=== PATIENT | male | born 1950 | race Caucasian/White ===

== ENCOUNTER → 2017-05-27 | Outpatient (REF) | payer OTHER, MEDICARE ==
[2017-05-27 12:44] LABS: ALBUMIN/GLOBULIN RATIO 0.97 (1.00-1.93); ALKALINE PHOSPHATASE 89 U/L (45-117); ALT/SGPT 21 U/L (12-78); ANION GAP 9 MEQ/L (8-16); AST/SGOT 16 U/L (15-37); BILIRUBIN,TOTAL 0.3 MG/DL (0.2-1.0); BLOOD UREA NITROGEN 14 MG/DL (7-18); CALCIUM LEVEL 8.4 MG/DL (8.8-10.2); CARBON DIOXIDE LEVEL 24 MEQ/L (21-32); CHLORIDE LEVEL 113 MEQ/L (98-107); CHOLESTEROL LEVEL 123 MG/DL (<200); CREATININE FOR GFR 0.89 MG/DL (0.70-1.30); GLOMERULAR FILTRATION RATE > 60.0 (>49); GLUCOSE, FASTING 89 MG/DL (80-110); SODIUM LEVEL 146 MEQ/L (136-145); TOTAL PROTEIN 6.1 GM/DL (6.4-8.2); TRIGLYCERIDES LEVEL 93 MG/DL (<150)
== END ==
LOC: M SFHCPLAZ 09:02
PROVIDERS: ATTEND Physician Assistant
DX: E78.4 Other hyperlipidemia (principal); Z12.5 Encounter for screening for malignant neoplasm of prostate
CPT/HCPCS: 36415; 80053; 80061; G0103

== ENCOUNTER → 2017-06-18 | Outpatient (REF) | payer MEDICARE ==
[2017-06-18 18:42] LABS: CALCIUM OXALATE CRYSTALS SMALL
== END ==
LOC: M SMT 16:40
PROVIDERS: ATTEND Nurse Practitioner Women's Health
DX: R97.20 Elevated prostate specific antigen [PSA] (principal); Z79.899 Other long term (current) drug therapy
CPT/HCPCS: 81001; 87086; G0463

== ENCOUNTER → 2017-08-29 | Outpatient (CLI) | payer MEDICARE ==
--- NOTE | 2017-08-29 09:14 | REP ---
Complete abdominal ultrasound and abdominal aortic ultrasound: Complete abdominal ultrasound: There is no cholelithiasis, gallbladder wall thickening or pericholecystic fluid. There is no intrahepatic or extrahepatic biliary duct dilatation. The common duct measures 4.2 mm in diameter. The hepatic parenchyma is homogeneous. The pancreas is obscured by bowel. The spleen is normal size measuring 7.8 cm craniocaudad length. The kidneys are normal size. Right kidney measures 11.7 x 5 one 3 x 4.5 cm. Left kidney measures 10.6 x 41 6 x 4.6 cm. There are no calculi. There is no hydronephrosis. There are no solid or cystic renal masses. There is no free fluid in the abdomen. Impression: Essentially negative complete abdominal ultrasound. Abdominal aortic ultrasound: Abdominal aorta ultrasound: Abdominal Aortic Measurements are as follows: Proximal 2.5 cm AP 2.4 cm TRV Renal Artery Level 2.2 cm AP 2.1 cm TRV Mid Aorta 2.2 cm AP 2.3 cm TRV Distal Aorta 3.3 cm AP 3.5 cm TRV R Iliac Artery 1.0 cm AP 1.1 cm TRV L Iliac Artery 1.0 cm AP 1.3 cm TRV There is mild aneurysmal dilatation of the distal abdominal aorta. Signed by Luis M Iverson MD 08/29/2017 09:05 A
[2017-08-29 09:37] LABS: ALBUMIN 3.7 GM/DL (3.2-5.2); ALBUMIN/GLOBULIN RATIO 1.06 (1.00-1.93); BILIRUBIN,DIRECT 0.2 MG/DL (0.0-0.2); BILIRUBIN,TOTAL 0.7 MG/DL (0.2-1.0); TOTAL PROTEIN 7.2 GM/DL (6.4-8.2)
== END ==
LOC: M RAD 07:49
PROVIDERS: ATTEND Family Medicine
DX: E88.09 Other disorders of plasma-protein metabolism, not elsewhere classified (principal); Z13.6 Encounter for screening for cardiovascular disorders

== ENCOUNTER → 2017-09-11 | Outpatient (CLI) | payer MEDICARE | LOC: M SMT 11:07 | PROVIDERS: ATTEND Nurse Practitioner Women's Health | DX: R97.20 Elevated prostate specific antigen [PSA] (principal) ==

== ENCOUNTER 2017-10-14 06:48 | Day surgery (SDC) | payer MEDICARE ==
[2017-10-14] MEDS ORDERED: NS 1,000 ML IV (07:00)
[2017-10-14] MEDS ORDERED: PROPOFOL 200 MG/20 ML VIAL As Ordered ×2 (07:53)
[2017-10-14] MEDS ORDERED: LIDOCAINE 2% MDV 20 ML VIAL As Ordered (07:54)
== END 2017-10-14 08:30 | disposition home or self-care (01) ==
LOC: M OPP 06:48
DX: R19.5 Other fecal abnormalities (principal); D12.5 Benign neoplasm of sigmoid colon; D12.3 Benign neoplasm of transverse colon; D12.0 Benign neoplasm of cecum; K57.30 Diverticulosis of large intestine without perforation or abscess without bleeding; K64.8 Other hemorrhoids; E78.5 Hyperlipidemia, unspecified; M54.9 Dorsalgia, unspecified; R25.1 Tremor, unspecified; Z87.891 Personal history of nicotine dependence; Z79.899 Other long term (current) drug therapy
CPT/HCPCS: 45385

== ENCOUNTER → 2019-04-06 | Outpatient (REF) | payer MEDICARE ==
[~2019-04-06] MED LIST: ATOR40TA75 PO; MYSO50TA5 PO
[2019-04-06 12:24] LABS: INR 1.04; PROTHROMBIN TIME 13.3 SECONDS (11.8-14.0)
[2019-04-06 12:30] LABS: ALBUMIN 3.6 GM/DL (3.2-5.2); BILIRUBIN,TOTAL 0.5 MG/DL (0.2-1.0); CALCIUM LEVEL 8.6 MG/DL (8.8-10.2); CREATININE FOR GFR 1.3 MG/DL (0.70-1.30); GLOMERULAR FILTRATION RATE 58.6 (>49); POTASSIUM SERUM 4.4 MEQ/L (3.5-5.1); TOTAL PROTEIN 7.1 GM/DL (6.4-8.2)
== END ==
LOC: M SFHCPLAZ 10:01
PROVIDERS: ATTEND Family Medicine
DX: E88.09 Other disorders of plasma-protein metabolism, not elsewhere classified (principal)
CPT/HCPCS: 80053; 85610; G0463

== ENCOUNTER → 2020-02-02 | Outpatient (CLI) | payer MEDICARE ==
--- NOTE | 2020-02-02 15:50 | REP ---
CT CHEST WITHOUT IV CONTRAST: CT chest performed without IV contrast. Sagittal and coronal reconstruction images are performed. Comparison is made with several prior exams, most recently 07/31/2015. There is a 3 mm nodule in the right upper lobe on image 46 and another is seen in the right lower lobe posterolaterally on image 77. These are unchanged since the prior studies. Calcified granuloma is seen in the left lower lobe. No new nodule is seen in either lung. There is some mild scattered linear fibrotic scarring. There is partially calcified left hilar lymph node. No suspicious axillary or mediastinal adenopathy is seen. There is mild atherosclerotic calcification of the thoracic aorta without aneurysm. The heart is normal in size. There is no pleural or pericardial effusion. There are a few subcentimeter hypodensities in the liver likely representing small cysts. There are degenerative changes of the spine. IMPRESSION: There are two 3 mm nodules in the right lung which appear stable. Calcified granuloma in the left lower lobe. Linear fibrotic scarring noted. No new nodule in either lung. No definite adenopathy in the chest. Electronically Signed by Luis M Lr MD 02/02/2020 04:34 P
== END ==
LOC: M RAD 14:44
PROVIDERS: ATTEND Family Medicine
DX: R91.8 Other nonspecific abnormal finding of lung field (principal); Z87.898 Personal history of other specified conditions

== ENCOUNTER → 2020-09-25 | Outpatient (REF) | payer MEDICARE ==
[2020-09-25 10:53] LABS: ALBUMIN 3.6 GM/DL (3.2-5.2); BILIRUBIN,TOTAL 0.5 MG/DL (0.2-1.0); CALCIUM LEVEL 8.7 MG/DL (8.8-10.2); CHOLESTEROL RISK RATIO 4.018 (<5); CREATININE FOR GFR 1.28 MG/DL (0.70-1.30); GLOMERULAR FILTRATION RATE 59.5 (>49); POTASSIUM SERUM 4.3 MEQ/L (3.5-5.1); TOTAL PROTEIN 6.9 GM/DL (6.4-8.2)
== END ==
LOC: M PLALAB 08:01
PROVIDERS: ATTEND Family Medicine
DX: E78.2 Mixed hyperlipidemia (principal); Z13.1 Encounter for screening for diabetes mellitus

== ENCOUNTER → 2020-11-14 | Outpatient (REF) | payer MEDICARE ==
[2020-11-14 11:41] LABS: BLOOD UREA NITROGEN 19 MG/DL (7-18); CALCIUM LEVEL 8.9 MG/DL (8.8-10.2); CARBON DIOXIDE LEVEL 26 MEQ/L (21-32); CHLORIDE LEVEL 108 MEQ/L (98-107); CREATININE FOR GFR 1.22 MG/DL (0.70-1.30); GLOMERULAR FILTRATION RATE > 60.0 (>49); GLUCOSE, FASTING 128 MG/DL (70-100); POTASSIUM SERUM 4.6 MEQ/L (3.5-5.1); SODIUM LEVEL 141 MEQ/L (136-145)
== END ==
LOC: M SFHCPLAZ 08:55
PROVIDERS: ATTEND Family Medicine
DX: R94.4 Abnormal results of kidney function studies (principal)

== ENCOUNTER → 2020-12-20 | Outpatient (CLI) | payer MEDICARE ==
[~2020-12-20] MED LIST changes: +[UNRECOGNIZED DRUG - OTHER]
== END ==
LOC: M LABSMTC 13:58
PROVIDERS: ATTEND Anesthesiology
DX: Z20.822 Contact with and (suspected) exposure to COVID-19 (principal)

== ENCOUNTER 2020-12-25 09:12 | Day surgery (SDC) | payer MEDICARE ==
[~2020-12-25] VITALS: Ht 185.4 cm; Wt 81.2 kg
[~2020-12-25 09:12] MED LIST changes: +LIDOCAINE 2% 100MG/5ML SDV (FOR ANES.) As Ordered ONE; +NS 1,000 ML IV ONE; +propofoL 200 MG/20 ML VIAL As Ordered ONE
--- NOTE | 2020-12-25 11:35 | ROOR ---
Patient Name: Jared Puckett Procedure Date: 12/25/2020 11:02 AM Date of : 1950 Age: 70 Room: [facility] Gender: Male Note Status: Finalized Procedure: Colonoscopy Indications: High risk colon cancer surveillance: Personal history of colonic polyps, Last colonoscopy: September 2017 Providers: Jared LONG MD Referring MD: Ligia Joya MD Requesting Provider: Medicines: Monitored Anesthesia Care Complications: No immediate complications. Procedure: Pre-Anesthesia Assessment: - The heart rate, respiratory rate, oxygen saturations, blood pressure, adequacy of pulmonary ventilation, and response to care were monitored throughout the procedure. The Colonoscope was introduced through the anus and advanced to the terminal ileum, with identification of the appendiceal orifice and IC valve. The colonoscopy was performed without difficulty. The patient tolerated the procedure well. The quality of the bowel preparation was good. Findings: Hemorrhoids were found on perianal exam. Multiple small and large-mouthed diverticula were found in the sigmoid colon. There was evidence of diverticular spasm. A 5 mm polyp was found in the splenic flexure. The polyp was sessile. The polyp was removed with a cold snare. Resection and retrieval were complete. External and internal hemorrhoids were found during retroflexion. The hemorrhoids were medium-sized and large. Impression: - Hemorrhoids found on perianal exam. - External and internal hemorrhoids. - Moderate diverticulosis in the sigmoid colon. There was evidence of diverticular spasm. - One 5 mm polyp at the splenic flexure, removed with a cold snare. Resected and retrieved. Recommendation: - Repeat colonoscopy in 5 years for surveillance. Procedure Code(s): --- Professional --- 39456, Colonoscopy, flexible; with removal of tumor(s), polyp(s), or other lesion(s) by snare technique Diagnosis Code(s): --- Professional --- Z86.010, Personal history of colonic polyps K64.8, Other hemorrhoids K63.5, Polyp of colon K57.30, Diverticulosis of large intestine without perforation or abscess without bleeding CPT copyright 2019 [employer]. All rights reserved. The codes documented in this report are preliminary and upon ice cream freezer assistant review may be revised to meet current compliance requirements. Jared Long MD Jared LONG MD 12/25/2020 11:35:18 AM Electronically signed by Jared LONG MD Number of Addenda: 0 Note Initiated On: 12/25/2020 11:02 AM Estimated Blood Loss: Estimated blood loss: none.
[2020-12-25 11:58] VITALS: BP 146/103
== END 2020-12-25 12:01 | disposition home or self-care (01) ==
LOC: M OPP 09:12
PROVIDERS: ATTEND Internal Medicine Gastroenterology
DX: Z12.11 Encounter for screening for malignant neoplasm of colon (principal); Z86.010 Personal history of colon polyps; K63.5 Polyp of colon; K57.30 Diverticulosis of large intestine without perforation or abscess without bleeding; K64.8 Other hemorrhoids

== ENCOUNTER → 2021-01-23 | Outpatient (CLI) | payer MEDICARE ==
[~2021-01-23] MED LIST changes: -LIDOCAINE 2% 100MG/5ML SDV (FOR ANES.) As Ordered ONE; -NS 1,000 ML IV ONE; -propofoL 200 MG/20 ML VIAL As Ordered ONE
--- NOTE | 2021-01-23 11:57 | REP ---
INDICATION: NICOTINE DEPEND. COMPARISON: Multiple the latest 02/02/2020 a standard noncontrast enhanced chest CT TECHNIQUE: Axial noncontrast images from the thoracic inlet to the upper abdomen using low-dose lung screening technique (LDCT). As per the protocol only lung window images were sent to the read station for interpretation. FINDINGS: The 3 mm size nodule seen previously in the right upper lobe now has a calcification within it. The 3 mm size nodule seen previously in the right lower lobe is unchanged. A posterior pleural based asymmetric 2 cm sized density has developed in the right lung apical region in incidental pulmonary calcification is again seen in the left lower lobe. Grossly, the mediastinum and pulmonary jaime are unchanged. Grossly the imaged upper abdomen and imaged osseous structures are unchanged. IMPRESSION: 1. Right lung nodules as described above. 2. Asymmetric pleural based density in the right lung apical region as described above. Three-month follow-up chest CT is recommended. There is no revised Fleischner society criteria on the recommendation for follow-up of such finding. 3. Other findings as described above. <Electronically signed by Berry Tate > 01/23/21 [id number]
== END ==
LOC: M RAD 11:00
PROVIDERS: ATTEND Family Medicine
DX: Z12.2 Encounter for screening for malignant neoplasm of respiratory organs (principal); R91.8 Other nonspecific abnormal finding of lung field; J98.4 Other disorders of lung; F17.211 Nicotine dependence, cigarettes, in remission

== ENCOUNTER → 2021-05-04 | Outpatient (CLI) | payer MEDICARE ==
[2021-05-04 12:54] LABS: BLOOD UREA NITROGEN 16 MG/DL (7-18); CALCIUM LEVEL 9.1 MG/DL (8.8-10.2); CARBON DIOXIDE LEVEL 25 MEQ/L (21-32); CHLORIDE LEVEL 111 MEQ/L (98-107); CREATININE FOR GFR 1.17 MG/DL (0.70-1.30); GLOMERULAR FILTRATION RATE > 60.0 (>49); GLUCOSE, FASTING 99 MG/DL (70-100); POTASSIUM SERUM 4.3 MEQ/L (3.5-5.1); SODIUM LEVEL 142 MEQ/L (136-145)
== END ==
LOC: M LAB 11:55
PROVIDERS: ATTEND Family Medicine
DX: R93.89 Abnormal findings on diagnostic imaging of other specified body structures (principal)

== ENCOUNTER → 2021-05-07 | Outpatient (CLI) | payer MEDICARE ==
[~2021-05-07] MED LIST changes: +ISOVUE-370 76% 100ML VIAL As Ordered ONE
--- NOTE | 2021-05-07 18:24 | REP ---
INDICATION: ABN CHEST CT COMPARISON: Multiple the latest 01/23/2021 a low-dose screening CT of the lungs TECHNIQUE: Standard helical technique after 100 cc Isovue 370. FINDINGS: There is no evidence of mediastinal or hilar adenopathy. There are no pleural or pericardial effusions. There is no change in the imaged upper abdomen or imaged osseous structures. Evaluation of the lung marin shows emphysematous changes status quo. The asymmetric pleural based density seen in the posterior right upper lobe is stable or has possibly has gotten smaller. Today's exam in the latest prior exam are technically different. There are no new abnormal nodules, masses, or opacities. Multiple lung nodules are stable. There is cylindrical bronchiectasis status quo. IMPRESSION: Stable chronic changes as described above <Electronically signed by Berry Tate > 05/07/21 [id number]
== END ==
LOC: M RAD 17:41
PROVIDERS: ATTEND Family Medicine
DX: R91.8 Other nonspecific abnormal finding of lung field (principal)
CPT/HCPCS: 71260; Q9967

== ENCOUNTER → 2022-01-11 | Outpatient (CLI) | payer MEDICARE ==
[~2022-01-11] MED LIST changes: -ISOVUE-370 76% 100ML VIAL As Ordered ONE
[2022-01-11 13:36] LABS: APPEARANCE, URINE CLEAR (CLEAR); BACTERIA, URINE AUTO NEGATIVE (NEGATIVE); BILIRUBIN, URINE AUTO NEGATIVE (NEGATIVE); BLOOD, URINE BLOOD NEGATIVE (NEGATIVE); COLOR, URINE YELLOW (YELLOW); GLUCOSE, URINE (UA) AUTO NEGATIVE (NEGATIVE); KETONE, URINE AUTO NEGATIVE (NEGATIVE); LEUKOCYTE ESTERASE, URINE AUTO NEGATIVE (NEGATIVE); NITRITE, URINE AUTO NEGATIVE (NEGATIVE); PROTEIN, URINE AUTO NEGATIVE (NEGATIVE); RBC, URINE AUTO 0 /HPF (0-3); SPECIFIC GRAVITY URINE AUTO 1.016 (1.002-1.035); SQUAMOUS EPITHELIAL CELL UR AU 0 /HPF (0-6); UROBILINOGEN, URINE AUTO 0.2 mg/dL (0.0-2.0); WBC, URINE AUTO 0 /HPF (0-3)
[2022-01-11 14:12] LABS: ALBUMIN 3.5 GM/DL (3.2-5.2); ALT/SGPT 50 U/L (12-78); BILIRUBIN,TOTAL 0.5 MG/DL (0.2-1.0); BLOOD UREA NITROGEN 22 MG/DL (7-18); CALCIUM LEVEL 9.2 MG/DL (8.8-10.2); CARBON DIOXIDE LEVEL 28 MEQ/L (21-32); CHLORIDE LEVEL 110 MEQ/L (98-107); CHOLESTEROL LEVEL 157 MG/DL (<200); CHOLESTEROL RISK RATIO 2.854 (<5); CREATININE FOR GFR 1.23 MG/DL (0.70-1.30); GLOMERULAR FILTRATION RATE > 60.0 (>49); GLUCOSE, FASTING 101 MG/DL (70-100); HDL CHOLESTEROL 55 MG/DL (>40); LDL CHOLESTEROL 89 MG/DL (<100); NON-HDL-C 102 MG/DL; POTASSIUM SERUM 5.5 MEQ/L (3.5-5.1); SODIUM LEVEL 142 MEQ/L (136-145); TOTAL PROTEIN 6.6 GM/DL (6.4-8.2); TRIGLYCERIDES LEVEL 64 MG/DL (<150)
== END ==
LOC: M PLALAB 09:32
PROVIDERS: ATTEND Family Medicine
DX: E78.2 Mixed hyperlipidemia (principal); R03.0 Elevated blood-pressure reading, without diagnosis of hypertension

== ENCOUNTER → 2022-01-14 | Outpatient (CLI) | payer MEDICARE ==
[2022-01-14 15:27] LABS: CREATININE FOR GFR 1.4 MG/DL (0.70-1.30); GLOMERULAR FILTRATION RATE 53.5 (>49); POTASSIUM SERUM 4.9 MEQ/L (3.5-5.1)
== END ==
LOC: M PLALAB 12:58
PROVIDERS: ATTEND Family Medicine
DX: E87.5 Hyperkalemia (principal)

== ENCOUNTER → 2022-01-15 | Outpatient (CLI) | payer MEDICARE ==
[2022-01-15 13:56] LABS: BLOOD UREA NITROGEN 18 MG/DL (7-18); CALCIUM LEVEL 9.5 MG/DL (8.8-10.2); CARBON DIOXIDE LEVEL 27 MEQ/L (21-32); CHLORIDE LEVEL 112 MEQ/L (98-107); CREATININE FOR GFR 1.21 MG/DL (0.70-1.30); CREATININE, URINE 59.8 MG/DL; GLOMERULAR FILTRATION RATE > 60.0 (>49); GLUCOSE, FASTING 114 MG/DL (70-100); MALB URINE SIEMENS < 5.0 MG/L; MAU/CREAT RATIO 8.3 MCG/MG (0.0-30.0); SODIUM LEVEL 143 MEQ/L (136-145)
== END ==
LOC: M PLALAB 10:49
PROVIDERS: ATTEND Family Medicine
DX: R94.4 Abnormal results of kidney function studies (principal); I10 Essential (primary) hypertension

== ENCOUNTER → 2022-09-25 | Outpatient (CLI) | payer MEDICARE | LOC: M RAD 09:33 | PROVIDERS: ATTEND Internal Medicine Hematology | DX: R93.89 Abnormal findings on diagnostic imaging of other specified body structures (principal); F17.211 Nicotine dependence, cigarettes, in remission ==

== ENCOUNTER → 2022-12-19 | Outpatient (CLI) | payer MEDICARE ==
[2022-12-19 16:53] LABS: ALBUMIN 3.5 G/DL (3.2-5.2); ALKALINE PHOSPHATASE 114 U/L (46-116); ALT/SGPT 31 U/L (7.0-40); AST/SGOT 23 U/L (<34); BILIRUBIN,TOTAL 0.7 MG/DL (0.3-1.2); BLOOD UREA NITROGEN 17 MG/DL (9-23); CALCIUM LEVEL 9.3 MG/DL (8.3-10.6); CARBON DIOXIDE LEVEL 30 MMOL/L (20-31); CHLORIDE LEVEL 108 MMOL/L (98-107); CHOLESTEROL LEVEL 130 MG/DL (<200); CREATININE FOR GFR 1.21 MG/DL (0.70-1.30); GLOMERULAR FILTRATION RATE > 60.0 (>42); GLUCOSE, FASTING 106 MG/DL (74-106); HDL CHOLESTEROL 40.6 MG/DL (>40); LDL CHOLESTEROL 75.2 MG/DL (<100); NON-HDL-C 89.4 MG/DL; POTASSIUM SERUM 5.2 MMOL/L (3.5-5.1); SODIUM LEVEL 140 MMOL/L (136-145); THYROID STIMULATING HORMONE 1.616 uIU/ML (0.55-4.78); TOTAL PROTEIN 6.7 G/DL (5.7-8.2); TRIGLYCERIDES LEVEL 71 MG/DL (<150)
[2022-12-19 16:54] LABS: FREE T4 1.07 NG/DL (0.89-1.76); TOTAL 25(OH) VITAMIN D 12.2 NG/ML (20.0-100.0)
== END ==
LOC: M PLALAB 13:45
PROVIDERS: ATTEND Internal Medicine Hematology
DX: E78.2 Mixed hyperlipidemia (principal); Z12.5 Encounter for screening for malignant neoplasm of prostate
CPT/HCPCS: 36415; 80053; 80061; 82306; 84439; 84443; G0103

== ENCOUNTER → 2023-06-09 | Outpatient (CLI) | payer MEDICARE ==
[2023-06-09 16:25] LABS: HEMATOCRIT 42.8 % (42.0-52.0); MEAN CORPUSCULAR HEMOGLOBIN 32.7 pg (27.0-33.0); MEAN CORPUSCULAR HGB CONC 32.7 g/dl (32.0-36.5); PLATELET COUNT, AUTOMATED 150 10^3/uL (150-450); RED BLOOD COUNT 4.28 10^6/uL (4.30-6.10)
[2023-06-09 16:42] LABS: C REACTIVE PROTEIN QUANTITATIV < 0.40 MG/DL (<1.0)
[2023-06-09 16:43] LABS: THYROID STIMULATING HORMONE 1.847 uIU/ML (0.55-4.78); TOTAL 25(OH) VITAMIN D 73.6 NG/ML (20.0-100.0)
[2023-06-09 16:44] LABS: ALBUMIN 3.5 G/DL (3.2-5.2); ALKALINE PHOSPHATASE 107 U/L (46-116); ALT/SGPT 36 U/L (7.0-40); AST/SGOT 27 U/L (<34); BILIRUBIN,TOTAL 0.3 MG/DL (0.3-1.2); BLOOD UREA NITROGEN 18 MG/DL (9-23); CALCIUM LEVEL 8.6 MG/DL (8.3-10.6); CARBON DIOXIDE LEVEL 27 MMOL/L (20-31); CHLORIDE LEVEL 110 MMOL/L (98-107); CHOLESTEROL LEVEL 134 MG/DL (<200); CHOLESTEROL RISK RATIO 2.88 (<5); CREATININE FOR GFR 1.42 MG/DL (0.70-1.30); GLOMERULAR FILTRATION RATE 52.3 (>42); GLUCOSE, FASTING 98 MG/DL (74-106); HDL CHOLESTEROL 46.4 MG/DL (>40); LDL CHOLESTEROL 72.6 MG/DL (<100); NON-HDL-C 87.6 MG/DL; POTASSIUM SERUM 4.7 MMOL/L (3.5-5.1); SODIUM LEVEL 142 MMOL/L (136-145); TOTAL PROTEIN 6.6 G/DL (5.7-8.2); TRIGLYCERIDES LEVEL 75 MG/DL (<150)
[2023-06-09 16:46] LABS: FREE T4 1.06 NG/DL (0.89-1.76); VITAMIN B12 LEVEL 374 PG/ML (211-911)
[2023-06-09 16:50] LABS: CREATININE, URINE 273.7 MG/DL; MAU/CREAT RATIO 2.5 MCG/MG (0.0-30.0)
[2023-06-09 17:07] LABS: HEMOGLOBIN A1c 5.2 % (4.0-6.0)
== END ==
LOC: M PLALAB 11:52
PROVIDERS: ATTEND Internal Medicine Hematology
DX: J44.9 Chronic obstructive pulmonary disease, unspecified (principal); E78.2 Mixed hyperlipidemia; Z13.1 Encounter for screening for diabetes mellitus; Z79.899 Other long term (current) drug therapy

== ENCOUNTER → 2023-12-30 | Outpatient (CLI) | payer MEDICARE ==
[2023-12-30 15:52] LABS: BASO # 0.1 10^3/uL (0.0-0.2); BASO % 0.6 % (0.0-1.0); EOS # 0.1 10^3/uL (0.0-0.5); EOS % 1.1 % (0.0-3.0); HEMATOCRIT 43.6 % (42.0-52.0); HEMOGLOBIN 14.6 g/dl (13.5-17.5); LYMPH # 1.9 10^3/uL (1.5-5.0); LYMPH % 21.7 % (24.0-44.0); MEAN CORPUSCULAR HEMOGLOBIN 33.7 pg (27.0-33.0); MEAN CORPUSCULAR HGB CONC 33.5 g/dl (32.0-36.5); MEAN CORPUSCULAR VOLUME 100.7 fl (80.0-96.0); MONO # 0.6 10^3/uL (0.0-0.8); MONO % 6.8 % (2.0-8.0); NEUTROPHILS % 69.5 % (36.0-66.0); PLATELET COUNT, AUTOMATED 165 10^3/uL (150-450); RED BLOOD COUNT 4.33 10^6/uL (4.30-6.10); WHITE BLOOD COUNT 8.7 10^3/uL (4.0-10.0)
[2023-12-30 16:23] LABS: PSA SCREENING 1.02 NG/ML (< 4.00)
[2023-12-30 16:28] LABS: ALBUMIN 3.7 G/DL (3.2-5.2); BILIRUBIN,TOTAL 0.5 MG/DL (0.3-1.2); CALCIUM LEVEL 9.1 MG/DL (8.3-10.6); CREATININE FOR GFR 1.37 MG/DL (0.70-1.30); GLOMERULAR FILTRATION RATE 54.5 (>42); POTASSIUM SERUM 4.9 MMOL/L (3.5-5.1); TOTAL PROTEIN 6.9 G/DL (5.7-8.2)
== END ==
LOC: M PLALAB 13:23
PROVIDERS: ATTEND Internal Medicine Hematology
DX: J44.9 Chronic obstructive pulmonary disease, unspecified (principal); Z12.5 Encounter for screening for malignant neoplasm of prostate
CPT/HCPCS: 36415; 80053; 85025; G0103

== ENCOUNTER → 2023-12-30 | Outpatient (CLI) | payer MEDICARE | LOC: M RAD 11:33 | PROVIDERS: ATTEND Internal Medicine Hematology | DX: Z87.891 Personal history of nicotine dependence (principal) ==

== ENCOUNTER → 2024-06-09 | Outpatient (CLI) | payer MEDICARE ==
[2024-06-09 18:28] LABS: CREATININE, URINE 253.7 MG/DL; MAU/CREAT RATIO 1.5 MCG/MG (0.0-30.0)
[2024-06-09 18:43] LABS: BASO # 0.1 10^3/uL (0.0-0.2); BASO % 0.9 % (0.0-1.0); EOS # 0.1 10^3/uL (0.0-0.5); EOS % 1.5 % (0.0-3.0); HEMATOCRIT 42.1 % (42.0-52.0); HEMOGLOBIN 14.2 g/dl (13.5-17.5); LYMPH # 2.2 10^3/uL (1.5-5.0); LYMPH % 27.2 % (24.0-44.0); MEAN CORPUSCULAR HEMOGLOBIN 33.2 pg (27.0-33.0); MEAN CORPUSCULAR HGB CONC 33.7 g/dl (32.0-36.5); MEAN CORPUSCULAR VOLUME 98.4 fl (80.0-96.0); MONO # 0.6 10^3/uL (0.0-0.8); MONO % 7.8 % (2.0-8.0); NEUTROPHILS # 5.1 10^3/uL (1.5-8.5); NEUTROPHILS % 62.4 % (36.0-66.0); PLATELET COUNT, AUTOMATED 158 10^3/uL (150-450); RED BLOOD COUNT 4.28 10^6/uL (4.30-6.10); WHITE BLOOD COUNT 8.2 10^3/uL (4.0-10.0)
[2024-06-09 19:14] LABS: ALBUMIN 3.5 G/DL (3.2-5.2); BILIRUBIN,TOTAL 0.6 MG/DL (0.3-1.2); CALCIUM LEVEL 9.5 MG/DL (8.3-10.6); CHOLESTEROL RISK RATIO 3.43 (<5); CREATININE FOR GFR 1.35 MG/DL (0.70-1.30); GLOMERULAR FILTRATION RATE 55.3 (>42); HDL CHOLESTEROL 41.3 MG/DL (>40); LDL CHOLESTEROL 89.7 MG/DL (<100); NON-HDL-C 100.7 MG/DL; POTASSIUM SERUM 4.3 MMOL/L (3.5-5.1); TOTAL PROTEIN 7.2 G/DL (5.7-8.2)
[2024-06-09 19:17] LABS: THYROID STIMULATING HORMONE 1.992 uIU/ML (0.55-4.78); TOTAL 25(OH) VITAMIN D 44.1 NG/ML (20.0-100.0)
[2024-06-09 19:18] LABS: FREE T4 1.15 NG/DL (0.89-1.76); HEMOGLOBIN A1c 5.6 % (4.0-6.0)
== END ==
LOC: M PLALAB 15:19
PROVIDERS: ATTEND Internal Medicine Hematology
DX: N18.31 Chronic kidney disease, stage 3a (principal); Z79.899 Other long term (current) drug therapy

== ENCOUNTER → 2024-07-15 | Outpatient (CLI) | payer MEDICARE | LOC: M OUTALCOH 13:57 | PROVIDERS: ATTEND Psychiatry & Neurology Psychiatry | DX: Z03.89 Encounter for observation for other suspected diseases and conditions ruled out (principal); Z72.0 Tobacco use ==

== ENCOUNTER 2024-07-29 15:04 | Outpatient (RCR) | payer MEDICARE | END 2024-08-21 | LOC: M OUTALCOH 15:04 | PROVIDERS: ATTEND Psychiatry & Neurology Psychiatry | DX: Z03.89 Encounter for observation for other suspected diseases and conditions ruled out (principal); Z72.0 Tobacco use ==

== ENCOUNTER → 2025-01-21 | Outpatient (CLI) | payer MEDICARE | LOC: M RAD 16:50 | PROVIDERS: ATTEND Student in an Organized Health Care Education/Training Program | DX: Z87.891 Personal history of nicotine dependence (principal) ==

== ENCOUNTER → 2025-04-15 | Outpatient (CLI) | payer MEDICARE ==
[2025-04-15 15:33] LABS: ALT/SGPT 39.0 U/L (7.0-40); AST/SGOT 24.0 U/L (<34); CALCIUM LEVEL 9.1 MG/DL (8.3-10.6); CARBON DIOXIDE LEVEL 25.0 MMOL/L (20-31); CHLORIDE LEVEL 107.0 MMOL/L (98-107); CREATININE FOR GFR 1.57 MG/DL (0.70-1.30); GLOMERULAR FILTRATION RATE 46.3 (>42); POTASSIUM SERUM 4.5 MMOL/L (3.5-5.1); SODIUM LEVEL 145.0 MMOL/L (136-145)
[2025-04-15 15:39] LABS: PLATELET COUNT, AUTOMATED 190 10^3/uL (150-450)
== END ==
LOC: M PLALAB 13:03
PROVIDERS: ATTEND Internal Medicine Cardiovascular Disease
DX: I25.119 Atherosclerotic heart disease of native coronary artery with unspecified angina pectoris (principal)

== ENCOUNTER → 2025-04-29 | Outpatient (CLI) | payer MEDICARE ==
[2025-04-29 14:42] LABS: CALCIUM LEVEL 9.1 MG/DL (8.3-10.6); CARBON DIOXIDE LEVEL 23.0 MMOL/L (20-31); CHLORIDE LEVEL 110.0 MMOL/L (98-107); CREATININE FOR GFR 1.62 MG/DL (0.70-1.30); GLOMERULAR FILTRATION RATE 44.5 (>42); POTASSIUM SERUM 4.3 MMOL/L (3.5-5.1); SODIUM LEVEL 142.0 MMOL/L (136-145)
== END ==
LOC: M PLALAB 09:49
PROVIDERS: ATTEND Internal Medicine Cardiovascular Disease
DX: I25.810 Atherosclerosis of coronary artery bypass graft(s) without angina pectoris (principal)

== ENCOUNTER → 2025-05-03 | Outpatient (CLI) | payer MEDICARE ==
[~2025-05-03] MED LIST changes: +ISOVUE-370 76% 100 ML VIAL ONE
== END ==
LOC: M PLAIMG 07:55
PROVIDERS: ATTEND Surgery Vascular Surgery
DX: I65.23 Occlusion and stenosis of bilateral carotid arteries (principal); I65.02 Occlusion and stenosis of left vertebral artery
CPT/HCPCS: 70496; 70498; Q9967

== ENCOUNTER → 2025-07-07 | Outpatient (CLI) | payer MEDICARE ==
[~2025-07-07] MED LIST changes: -ISOVUE-370 76% 100 ML VIAL ONE
[2025-07-07 15:22] LABS: PLATELET COUNT, AUTOMATED 167 10^3/uL (150-450)
[2025-07-07 15:34] LABS: TOTAL 25(OH) VITAMIN D 31.9 NG/ML (20.0-100.0)
[2025-07-07 15:35] LABS: ESTIMATED AVERAGE GLUCOSE 120.0 MG/DL (60-110)
[2025-07-07 15:54] LABS: ALT/SGPT 39.0 U/L (7.0-40); AST/SGOT 28.0 U/L (<34); CALCIUM LEVEL 9.3 MG/DL (8.3-10.6); CARBON DIOXIDE LEVEL 24.0 MMOL/L (20-31); CHLORIDE LEVEL 110.0 MMOL/L (98-107); CHOLESTEROL LEVEL 160.0 MG/DL (<200); CHOLESTEROL RISK RATIO 3.18 (<5); CREATININE FOR GFR 1.39 MG/DL (0.70-1.30); GLOMERULAR FILTRATION RATE 53.5 (>42); LDL CHOLESTEROL 96.3 MG/DL (<100); NON-HDL-C 109.7 MG/DL; POTASSIUM SERUM 4.6 MMOL/L (3.5-5.1); SODIUM LEVEL 146.0 MMOL/L (136-145); TRIGLYCERIDES LEVEL 67.0 MG/DL (<150)
== END ==
LOC: M PLALAB 13:38
PROVIDERS: ATTEND Family Medicine
DX: I48.91 Unspecified atrial fibrillation (principal); R79.89 Other specified abnormal findings of blood chemistry; I25.5 Ischemic cardiomyopathy; E78.2 Mixed hyperlipidemia; N18.31 Chronic kidney disease, stage 3a